=== PATIENT | female | born 1990 | race Caucasian/White ===

== ENCOUNTER 2018-04-30 15:23 | Emergency (ER) | payer OTHER ==
--- NOTE | 2018-04-30 16:35 | ER Document Report ---
ED Medical Screen (RME) - General Chief Complaint: Chest Pain Stated Complaint: CHEST PAIN Time Seen by Provider: 04/30/18 16:33 Notes: Patient is complaining of pain in the upper anterior right chest which awakened her from sleep 3 mornings ago. She has not on any unusual activity or heavy lifting, etc. No injury. The pain is present most constantly, but worsened by taking deep breaths or pressing on the area. Has never had this before. Other than the right upper anterior chest pain, the patient says she feels "fine". Denies cough or cold or chest congestion. Does not feel short of breath. Has never had any problem with blood clots. Denies fever. Patient denies stress. She does have 3 older children, 4 years of age and younger, at home. TRAVEL OUTSIDE OF THE [place] IN LAST 30 DAYS: No Past Medical History - Social History Drug Abuse: None Renal/ Medical History: Denies: Hx Peritoneal Dialysis Physical Exam - Vital signs Vitals: Temp Pulse Resp BP Pulse Ox 97.5 F 64 16 114/67 100 04/30/18 15:37 04/30/18 15:37 04/30/18 15:37 04/30/18 15:37 04/30/18 15:37 Course - Vital Signs Vital signs: Temp Pulse Resp BP Pulse Ox 97.5 F 64 16 114/67 100 04/30/18 15:37 04/30/18 15:37 04/30/18 15:37 04/30/18 15:37 04/30/18 15:37
[2018-04-30 16:57] LABS: ABSOLUTE BASOPHILS # (AUTO) 0.1 10^3/uL (0.0-0.2); ABSOLUTE EOSINOPHILS # (AUTO) 0.3 10^3/uL (0.0-0.6); ABSOLUTE LYMPHOCYTES (AUTO) 2.3 10^3/uL (0.5-4.7); ABSOLUTE MONOCYTES (AUTO) 0.4 10^3/uL (0.1-1.4); ABSOLUTE NEUT (AUTO) 5.3 10^3/uL (1.7-8.2); BASOPHILS % (AUTO) 0.7 % (0-2); HEMATOCRIT 40.5 % (36.0-47.0); HEMOGLOBIN 13.6 g/dL (12.0-15.5); LYMPHOCYTES % (AUTO) 27.6 % (13-45); MEAN CORPUSCULAR HEMOGLOBIN 29.9 pg (27.0-33.4); MEAN CORPUSCULAR HGB CONC 33.6 g/dL (32.0-36.0); MEAN CORPUSCULAR VOLUME 89 fl (80-97); MONOCYTES % (AUTO) 4.5 % (3-13); PLATELET COUNT 154 10^3/uL (150-450); RED BLOOD COUNT 4.55 10^6/uL (3.72-5.28); RED CELL DISTRIBUTION WIDTH 15.7 % (11.5-14.0); SEGMENTED NEUTROPHILS % (AUTO) 64.2 % (42-78); TOTAL CELLS COUNTED % (AUTO) 100 %; WHITE BLOOD COUNT 8.2 10^3/uL (4.0-10.5)
[2018-04-30 17:16] LABS: ALANINE AMINOTRANSFERASE 13 U/L (9-52); ALBUMIN 4.6 g/dL (3.5-5.0); ALKALINE PHOSPHATASE 91 U/L (38-126); ANION GAP 9 (5-19); ASPARTATE AMINO TRANSFERASE 26 U/L (14-36); BILIRUBIN,DIRECT 0.1 mg/dL (0.0-0.4); BILIRUBIN,TOTAL 0.7 mg/dL (0.2-1.3); BLOOD UREA NITROGEN 11 mg/dL (7-20); CALCIUM 9.4 mg/dL (8.4-10.2); CARBON DIOXIDE 26 mmol/L (22-30); CHLORIDE 105 mmol/L (98-107); GLUCOSE 94 mg/dL (75-110); POTASSIUM 3.9 mmol/L (3.6-5.0); SODIUM 140.1 mmol/L (137-145); TOTAL PROTEIN 7.3 g/dL (6.3-8.2)
--- NOTE | 2018-04-30 17:17 | RADIOLOGY REPORT (SQ) ---
EXAM DESCRIPTION: CHEST 2 VIEWS COMPLETED DATE/TIME: 04/30/2018 5:08 pm REASON FOR STUDY: Right upper, anterior chest pain. COMPARISON: None. EXAM PARAMETERS: NUMBER OF VIEWS: two views TECHNIQUE: Digital Frontal and Lateral radiographic views of the chest acquired. RADIATION DOSE: NA LIMITATIONS: none FINDINGS: LUNGS AND PLEURA: No opacities, masses or pneumothorax. No pleural effusion. MEDIASTINUM AND HILAR STRUCTURES: No masses or contour abnormalities. HEART AND VASCULAR STRUCTURES: Heart normal size. No evidence for failure. BONES: No acute findings. HARDWARE: None in the chest. OTHER: No other significant finding. IMPRESSION: NO ACUTE RADIOGRAPHIC FINDING IN THE CHEST. TECHNICAL DOCUMENTATION: JOB ID: [id number] [employer]- All Rights Reserved Reading location - IP/workstation name: [email or web address]
[2018-04-30 17:27] LABS: CREATINE KINASE MB 0.75 ng/mL (<4.55)
[2018-04-30 17:30] LABS: TROPONIN I < 0.012 ng/mL
[2018-04-30] MEDS ORDERED: NAPROXEN 250 MG TABLET PO ONE (19:16)
[2018-04-30] MEDS ORDERED: ACETAMINOPHEN 325 MG TABLET PO ONE (19:17)
--- NOTE | 2018-04-30 19:21 | ER Document Report ---
ED Cardiac - General Chief Complaint: Chest Pain Stated Complaint: CHEST PAIN Time Seen by Provider: 04/30/18 16:33 Notes: Patient is a 28-year-old female who presents to the emergency department with a chief complaint of chest pain. Her pain is in the right side of her chest and does not radiate anywhere. She states that is one spot and her pain comes on when she takes deep breaths in and out. Her pain started 3 days ago and it has been a constant pain. She tried taking 1000 mg of Tylenol for the pain yesterday, but did not have any relief she is currently at home with her children ages 4, 2, and 8 months. She has been lifting her children, but is having a hard time lifting her 8-month-old. Her is deployed at this time. She states her last checkup was her visit after having her 8-month-old. She denies any cough, sore throat, vomiting, or diarrhea. TRAVEL OUTSIDE OF THE [place] IN LAST 30 DAYS: No - Related Data Allergies/Adverse Reactions: No Known Allergies Allergy (Unverified 04/30/18 16:34) Past Medical History - Social History Smoking Status: Current Every Day Smoker Drug Abuse: None Lives with: Family Family History: Reviewed & Not Pertinent Patient has suicidal ideation: No Patient has homicidal ideation: No Renal/ Medical History: Denies: Hx Peritoneal Dialysis Review of Systems - Review of Systems Notes: REVIEW OF SYSTEMS: CONSTITUTIONAL : Denies recent illness. Denies recent unintentional weight loss. Denies fever, chills, or sweats. EENT: Denies eye, ear, throat, or mouth pain, discharge, or symptoms. Denies nasal or sinus congestion. CARDIOVASCULAR: See HPI RESPIRATORY: See HPI GASTROINTESTINAL: Denies nausea, vomiting, and diarrhea. Denies abdominal pain. Denies constipation. GENITOURINARY: Denies difficulty urinating, burning, blood in urine, urgency or frequency. MUSCULOSKELETAL: Denies neck and back pain. Denies joint pain or swelling. SKIN: Denies rash, itchiness, or lesions HEMATOLOGIC : Denies easy bruising or bleeding. LYMPHATIC: Denies swollen, painful, enlarged glands. NEUROLOGICAL: Denies no numbness or tingling denies weakness. Denies headache. Denies altered mental status. Denies alteration in speech. PSYCHIATRIC: Denies stress, anxiety, alteration in sleep patterns, or depr ession. All other systems reviewed and negative. Physical Exam - Vital signs Vitals: Temp Pulse Resp BP Pulse Ox 97.5 F 64 16 114/67 100 04/30/18 15:37 04/30/18 15:37 04/30/18 15:37 04/30/18 15:37 04/30/18 15:37 - Notes Notes: PHYSICAL EXAMINATION: GENERAL: Appears well, healthy, well-nourished, no acute distress. HEAD: Normocephalic, atraumatic. EYES: PERRL, conjunctiva normal, all extraocular movements intact, sclera nonicteric ENT: Moist mucous membranes. NECK: Supple, no noticeable swelling, redness, rash. Normal range of motion. LUNGS: Equal breath sounds bilaterally and clear to auscultation. No wheezes rales or rhonchi. CARDIOVASCULAR: S1-S2, regular rate, regular rhythm. Radial pulses 2+, normal. Chest pain reproducible upon palpation of the right chest. ABDOMEN: Normoactive bowel sounds. Soft, nontender, no guarding, no rebound tenderness, and no masses palpated. EXTREMITIES: Normal strength and range of motion, no pitting or edema. No cyanosis. NEUROLOGICAL: Moves all extremities upon command. Strength 5/5 in all e xtremities. PSYCH: Normal mood, normal affect. SKIN: Warm, dry. No rash, lesions, ulcerations noted. Normal skin turgor. Course - Re-evaluation Re-evalutation: Differential diagnosis includes costochondritis, spontaneous pneumothorax, pulmonary embolism, or pneumonia. 04/30/18 19:21 Patient's chest x-ray is normal, therefore I do not think she has a spontaneous pneumothorax or pneumonia. Her EKGs shows sinus rhythm at 68. Her CBC and chemistries are unremarkable. Her d-dimer is negative, therefore I do not suspect a PE or clot. Her pain is reproducible on palpation, therefore I suspect her pain is musculoskeletal in nature. She will be given naproxen and acetaminophen for her pain. I have spoken with her in regards and to her labs. Verbal discharge instructions were given to the patient. They verbalized under standing. They are stable for discharge. - Vital Signs Vital signs: Temp Pulse Resp BP Pulse Ox 98.6 F 71 16 118/70 98 04/30/18 19:44 04/30/18 19:44 04/30/18 19:44 04/30/18 19:44 04/30/18 19:44 - Laboratory Result Diagrams: 04/30/18 16:45 04/30/18 16:45 Laboratory results interpreted by me: 04/30/18 16:45 RDW 15.7 H - EKG Interpretation by Me Additional EKG results interpreted by me: 04/30/18 19:26 Sinus rhythm. Rate 68. [place] 156; QRS 88; QT 388; QTC 413. No ST elevations or depressions. Discharge - Discharge Clinical Impression: Chest pain Qualifiers: Chest pain type: unspecified Qualified Code(s): R07.9 - Chest pain, unspecified Condition: Stable Disposition: HOME, SELF-CARE Additional Instructions: You were seen today in the emergency department for chest pain. The most likely cause of your chest pain is musculoskeletal. Your labs are normal. Your chest x-ray is normal. Your EKG is normal. You can take Tylenol 1000 mg every 6 hours as needed for your pain. You can also take naproxen 500 mg twice a day as needed for your pain. You have received a dose here in the emergency department . If you develop worsening chest pain, your symptoms are not relieved by Tylenol and naproxen, or if you have any concerns that are worrisome to you, please return to the emergency department.
[2018-04-30 19:45] VITALS: BP 118/70
--- NOTE | 2018-04-30 19:47 | EKG REPORT ---
SEVERITY:- NORMAL ECG - SINUS RHYTHM : Confirmed by: Key Farley MD 30-Apr-2018 19:46:42
== END 2018-04-30 19:45 | disposition home or self-care (01) ==
LOC: ER 15:23
DX: R07.1 Chest pain on breathing (principal); F17.200 Nicotine dependence, unspecified, uncomplicated
CPT/HCPCS: 36415; 71046; 80053; 82553; 84484; 85025; 85379; 93005; 93010; 99285

== ENCOUNTER 2019-11-10 21:46 | Emergency (ER) | payer OTHER ==
[2019-11-10] MEDS ORDERED: ACETAMINOPHEN 325 MG TABLET PO ONE (23:52)
[2019-11-10] MEDS ORDERED: IBUPROFEN 600 MG TABLET PO ONE (23:52)
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
[2019-11-11 02:34] LABS: APPEARANCE,URINE SLIGHTLY-CLOUDY; BILIRUBIN,URINE NEGATIVE (NEGATIVE); COLOR,URINE YELLOW; GLUCOSE, URINE NEGATIVE (NEGATIVE); KETONES,URINE 80 mg/dL (NEGATIVE); LEUKOCYTE ESTERASE,URINE TRACE (NEGATIVE); NITRITE,URINE NEGATIVE (NEGATIVE); PROTEIN,URINE 30 mg/dL (NEGATIVE); URINE SPECIFIC GRAVITY 1.028
[2019-11-11] MEDS ORDERED: HYDROCODONE/ACETAMINOPHEN 5-325 MG (6 TAB/ER DISP) PO PRN (02:38)
[2019-11-11 02:47] LABS: URINE AMPHETAMINES SCREEN NEGATIVE; URINE BARBITURATES SCREEN NEGATIVE; URINE BENZODIAZEPINES SCREEN NEGATIVE; URINE COCAINE SCREEN NEGATIVE; URINE MARIJUANA (THC) SCREEN NEGATIVE; URINE METHADONE SCREEN NEGATIVE; URINE PHENCYCLIDINE SCREEN NEGATIVE
[2019-11-11 02:57] VITALS: BP 112/75
== END 2019-11-11 02:58 | disposition home or self-care (01) ==
LOC: ER 21:46
DX: S05.11XA Contusion of eyeball and orbital tissues, right eye, initial encounter (principal); S60.221A Contusion of right hand, initial encounter; S50.12XA Contusion of left forearm, initial encounter; R51 Headache; M79.641 Pain in right hand; M25.551 Pain in right hip; M79.621 Pain in right upper arm; M25.561 Pain in right knee; M25.562 Pain in left knee; L53.9 Erythematous condition, unspecified; Y04.2XXA Assault by strike against or bumped into by another person, initial encounter; Y08.89XA Assault by other specified means, initial encounter; Z79.899 Other long term (current) drug therapy; F17.200 Nicotine dependence, unspecified, uncomplicated
CPT/HCPCS: 70450; 70486; 72125; 80307; 81001; 99284